=== PATIENT | female | born 1990 | race Caucasian/White ===

== ENCOUNTER 2023-10-28 11:45 | Observation (INO) | payer BC, SELFPAY ==
[2023-10-28 12:02] VITALS: BMI 38.4
[2023-10-28 12:14] VITALS: BP 113/82
[2023-10-28 12:15] LABS: % Basophils 0.2 % (0-2); % Eosinophils 0.5 % (0-6); % Immature Granulocytes 2.1 % (0-0.5); % Lymphocytes 21.2 % (20.5-51.1); % Monocytes 7.1 % (1.7-9.3); % Neutrophils 68.9 % (42.2-75.2); Absolute Immature Granulocytes 0.2 10^3/uL (0-0.05); Absolute Lymphocytes 1.9 10^3/uL (1.2-3.4); Absolute Monocytes 0.6 10^3/uL (0.1-0.6); Hematocrit 31.7 % (37.0-47.0); Hemoglobin 11.1 g/dL (12.0-16.0); Mean Corpuscular Hgb 31.1 pg (27.0-31.0); Mean Corpuscular Volume 88.8 fL (81.0-99.0); Mean Platelet Volume 10.1 fL (7.4-10.4); Nucleated Red Blood Cells % 0 %; Platelet Count 181 10^3/uL (130-400); Red Blood Cell Count 3.57 10^6/uL (4.20-5.40); Red Cell Dist. Width 12.7 % (11.5-14.5); White Blood Cell Count 8.7 10^3/uL (4.8-10.8)
[2023-10-28 12:39] LABS: Urine Albumin Negative (Neg - Trace); Urine Bilirubin Negative (Negative); Urine Character Clear (Clear); Urine Color Yellow; Urine Glucose Negative (Negative); Urine Ketone Negative (Negative); Urine Leukocyte Negative (Negative); Urine Nitrite Negative (Negative); Urine Occult Blood Negative (Negative); Urine Specific Gravity 1.015 (<1.030); Urine Urobilinogen Negative (Neg - 1+)
[2023-10-28 12:58] LABS: ALT (SGPT) 12 U/L (0-35); AST (SGOT) 18 U/L (14-36); Albumin 3.5 g/dl (3.5-5.0); Alkaline Phosphatase 103 U/L (38-126); Blood Urea Nitrogen 7 mg/dl (7-17); Calcium 8.8 mg/dl (8.4-10.2); Carbon Dioxide 22 mmol/L (22-30); Chloride 106 mmol/L (98-107); Estimated Creatinine Clearance > 125 ml/min; Glucose 69 mg/dl (70-99); Potassium 3.9 mmol/L (3.5-5.1); Sodium 132 mmol/L (135-145); Total Bilirubin 0.3 mg/dl (0.2-1.3); Total Protein 6.3 g/dl (6.3-8.2); eGFR > 60.00
[2023-10-28 13:20] LABS: Protein/creatinine Ratio 0.4; Urine Protein 15 mg/dl
== END 2023-10-28 15:00 | disposition home or self-care (01) ==
LOC: PNTC-IN 11:45
PROVIDERS: ADMITTING PHYSICIAN Obstetrics & Gynecology; ATTENDING PHYSICIAN Obstetrics & Gynecology
DX: R51.9 Headache, unspecified (principal); Z3A.35 35 weeks gestation of pregnancy
CPT/HCPCS: 59025; 80053; 81003; 82570; 84156; 85025; G0378

== ENCOUNTER → 2023-10-31 10:18 | Outpatient (REF) | payer BC, SELFPAY | LOC: PNTC 10:18 | PROVIDERS: ATTENDING PHYSICIAN Obstetrics & Gynecology | DX: R80.9 Proteinuria, unspecified (principal); R51.9 Headache, unspecified | CPT/HCPCS: 59025; 76815 ==

== ENCOUNTER → 2023-11-04 13:30 | Outpatient (REF) | payer BC, SELFPAY | LOC: PNTC 13:30 | PROVIDERS: ATTENDING PHYSICIAN Obstetrics & Gynecology | DX: R80.9 Proteinuria, unspecified (principal); R51.9 Headache, unspecified | CPT/HCPCS: 59025 ==

== ENCOUNTER 2023-11-07 19:25 | Inpatient (IN) | payer BC, SELFPAY ==
[2023-11-07 19:32] VITALS: BMI 41.8
[2023-11-07 19:52] VITALS: BP 133/78
[2023-11-07 20:15] LABS: % Basophils 0.2 % (0-2); % Eosinophils 0.5 % (0-6); % Immature Granulocytes 1.5 % (0-0.5); % Lymphocytes 19.1 % (20.5-51.1); % Neutrophils 73.7 % (42.2-75.2); Absolute Eosinophils 0.1 10^3/uL (0-0.7); Absolute Immature Granulocytes 0.2 10^3/uL (0-0.05); Absolute Lymphocytes 2.1 10^3/uL (1.2-3.4); Absolute Monocytes 0.6 10^3/uL (0.1-0.6); Absolute Neutrophils 8.1 10^3/uL (1.4-6.5); Mean Corp Hgb Conc. 36.7 g/dL (33.0-37.0); Mean Corpuscular Hgb 31.8 pg (27.0-31.0); Mean Corpuscular Volume 86.7 fL (81.0-99.0); Mean Platelet Volume 10.3 fL (7.4-10.4); Nucleated Red Blood Cells % 0 %; Platelet Count 171 10^3/uL (130-400); Red Blood Cell Count 3.46 10^6/uL (4.20-5.40); Red Cell Dist. Width 12.8 % (11.5-14.5)
[2023-11-07] MEDS: CYTOTEC 25 MICROGRAM VAG (20:27)
[2023-11-07 20:42] LABS: ALT (SGPT) 14 U/L (0-35); AST (SGOT) 21 U/L (14-36); Albumin 3.6 g/dl (3.5-5.0); Alkaline Phosphatase 121 U/L (38-126); Blood Urea Nitrogen 6 mg/dl (7-17); Carbon Dioxide 17 mmol/L (22-30); Chloride 107 mmol/L (98-107); Estimated Creatinine Clearance > 125 ml/min; Glucose 88 mg/dl (70-99); Potassium 3.5 mmol/L (3.5-5.1); Sodium 132 mmol/L (135-145); Total Bilirubin 0.5 mg/dl (0.2-1.3); Total Protein 6.3 g/dl (6.3-8.2); eGFR > 60.00
[2023-11-08] MEDS: CYTOTEC 50 MICROGRAM VAG (00:30)
[2023-11-08] MEDS: CYTOTEC 50 MICROGRAM PO ×2 (04:30→09:54)
[2023-11-08] MEDS: PRENATAL PLUS 1 TABLET PO (08:56)
[2023-11-08] MEDS: FLUSH (NSS) 1 FLUSH IV (10:58)
[2023-11-08] MEDS: LR 1000 IV ×2 (10:58→14:31)
[2023-11-08] MEDS: MORPHINE SULFATE 2 MG IV (11:00)
[2023-11-08] MEDS: CYTOTEC PO ×2 (13:00→17:00)
[2023-11-08] MEDS: PITOCIN 30 UNITS/NSS 500 ML IV ×2 (14:04→16:45)
[2023-11-08] MEDS: FENTANYL/BUPIVACAINE 100 EPIDURAL (15:06)
[2023-11-08] MEDS: SUBLIMAZE 100 MCG EPIDURAL (15:06)
[2023-11-08] MEDS: METHERGINE INJECTION 0.200000000000000011 MG IM (16:57)
[2023-11-08] MEDS: CYTOTEC 800 MCG RECTAL (17:03)
[2023-11-08] MEDS: TRANEXAMIC ACID 100 IV (17:19)
[2023-11-08] MEDS: MOTRIN 600 MG PO (20:17)
[2023-11-09] MEDS: MOTRIN 600 MG PO ×3 (02:22→15:43)
[2023-11-09 05:46] LABS: Hematocrit 29.8 % (37.0-47.0); Hemoglobin 10.3 g/dL (12.0-16.0)
[2023-11-09] MEDS: PRENATAL PLUS 1 TABLET PO (08:32)
[2023-11-09] MEDS: TYLENOL 650 MG PO ×3 (08:32→17:34)
[2023-11-09] MEDS: FEOSOL 325 MG PO (10:21)
[2023-11-09] MEDS: SENOKOT-S 1 TABLET PO (15:43)
[2023-11-10] MEDS: MOTRIN 600 MG PO ×2 (01:43→08:25)
[2023-11-10] MEDS: FEOSOL 325 MG PO (08:23)
[2023-11-10] MEDS: PRENATAL PLUS 1 TABLET PO (08:23)
[2023-11-10] MEDS: TYLENOL 650 MG PO (08:24)
[2023-11-10] MEDS: SENOKOT-S 1 TABLET PO (08:24)
[2023-11-12 15:35] LABS: Syphilis/T. pallidum Ab Reflex Negative (Negative)
== END 2023-11-10 11:47 | disposition home or self-care (01) | DRG 807 ==
LOC: LDRP 19:25
PROVIDERS: Obstetrics & Gynecology; ADMITTING PHYSICIAN Obstetrics & Gynecology
PROC: 0HQ9XZZ Repair Perineum Skin, External Approach (ICD-10-PCS; 2023-11-08)
PROC: 3E0P7VZ Introduction of Hormone into Female Reproductive, Via Natural or Artificial Opening (ICD-10-PCS; 2023-11-08)
PROC: 10E0XZZ Delivery of Products of Conception, External Approach (ICD-10-PCS; 2023-11-08)
PROC: 10907ZC Drainage of Amniotic Fluid, Therapeutic from Products of Conception, Via Natural or Artificial Opening (ICD-10-PCS; 2023-11-08)
PROC: 0U7C7ZZ Dilation of Cervix, Via Natural or Artificial Opening (ICD-10-PCS; 2023-11-08)
PROC: 3E033VJ Introduction of Other Hormone into Peripheral Vein, Percutaneous Approach (ICD-10-PCS; 2023-11-08)
DX: O14.04 Mild to moderate pre-eclampsia, complicating childbirth (principal); Z37.0 Single live birth; O70.0 First degree perineal laceration during delivery; Z3A.37 37 weeks gestation of pregnancy; O99.214 Obesity complicating childbirth; Z3A.00 Weeks of gestation of pregnancy not specified
CPT/HCPCS: 88307; 36415; 59025; 76816; 80053; 85014; 85018; 85025; 86780; 86850; 86900; 86901